=== PATIENT | female | born 1960 | race American Indian/Alaskan Native ===

== ENCOUNTER 2016-06-18 08:14 | Outpatient (CLI) | payer OTHER ==
[2016-06-18 09:23] LABS: Basophils % (Auto) 0.6 % (0.0-1.8); Hemoglobin 12.1 gm/dl (10.1-14.3); Mean Corpuscular HGB Conc 32 % (30-34); Mean Corpuscular Hemoglobin 28 pg (28-32); Mean Corpuscular Volume 87 fl (79-97); Platelet Count 233 K/mm3 (140-440); Red Blood Count 4.36 M/mm3 (3.65-5.03); Red Cell Distribution Width 14.6 % (13.2-15.2); White Blood Count 5.4 K/mm3 (4.5-11.0)
[2016-06-18 09:31] LABS: Alanine Aminotransferase 12 units/L (7-56); Albumin/Globulin Ratio 1.4 %; Alkaline Phosphatase 71 units/L (35-129); Anion Gap 15 mmol/L; BUN/Creatinine Ratio 12.72; Bilirubin,Total 0.3 mg/dL (0.1-1.2); Blood Urea Nitrogen 14 mg/dL (7-17); Calcium 9.2 mg/dL (8.4-10.2); Carbon Dioxide 26 mmol/L (22-30); Chloride 103.7 mmol/L (98-107); Cholesterol 125 mg/dL (50-199); Glucose 95 mg/dL (65-100); HDL Cholesterol 41 mg/dL (40-59); LDL Cholesterol,Direct 64 mg/dL (50-130); Potassium 4.1 mmol/L (3.6-5.0); Sodium 141 mmol/L (137-145); Total Protein 6.8 g/dL (6.3-8.2); Triglycerides 101 mg/dL (2-149)
== END 2016-06-18 08:15 | disposition home or self-care (01) ==
LOC: LAB 08:14
PROVIDERS: ATTEND Psychiatry & Neurology Psychiatry
DX: F32.0 Major depressive disorder, single episode, mild (principal)
CPT/HCPCS: 36415; 80053; 80061; 83036; 84146; 84439; 84443; 85025